=== PATIENT | male | born 1985 | race Caucasian/White ===

== ENCOUNTER 2021-07-20 00:49 | Emergency (ER) | payer MEDICAID, SELFPAY ==
[2021-07-20 00:59] VITALS: BP 140/85; PULSE 73; RESP 16; TEMP 36.7; O2SAT 99; BMI 30.2
--- NOTE | 2021-07-20 01:10 | ED_ITS ---
HPI - Nausea/Vomiting/Diarrhea General Chief complaint: Abdominal Pain Stated complaint: vomiting blood Time Seen by Provider: 07/20/21 00:50 Source: patient Mode of arrival: ambulatory Limitations: no limitations History of Present Illness HPI Narrative: tested positive at home rapid test with fevers/chills/body aches last wednesday then went to [facility] to confirm with antigen test on 07/16 that was negative MD elicited complaint: nausea, vomiting (on 3rd bout of emesis noted streaks of blood in emesis) and other (headache) Pertinent past history: other (chronic headaches every 2 months) Onset (ago): hour(s) (2) Description of vomiting: food contents, watery, bilious and blood-streaked Associated nausea: Yes Associated abdominal pain: No Location of pain: none Severity: moderate Relieving factors: other (drinking water) Context: other (none, hx of headaches and nausea took 2 advil tonight) Associated symptoms: headaches and nausea/vomiting Treatment prior to arrival: NSAIDs Related Data Previous Rx's Medication Instructions Recorded famotidine 20 mg tablet (Pepcid) 20 mg PO DAILY #14 tab 07/20/21 ondansetron 4 mg disintegrating 4 mg PO Q8H PRN #20 tab 07/20/21 tablet Allergies Allergy/AdvReac Type Severity Reaction Status Date / Time epoxy resin [EPOXY Allergy Intermediate RASH Verified 07/20/21 01:06 RESIN] Review of Systems Verdana 4l Review of Systems: Verdana 4d Verdana 4d Constitutional : No Fever, No Chills, No Fatigue ENT/Mouth : No sore throat, No Rhinorrhea Eyes: No Eye Pain, No Swelling, No Redness Cardiovascular : No Chest Pain, No SOB, No Dyspnea on Exertion Respiratory : No Cough, No Sputum GastrointestinalGastrointestinal : pos Nausea, pos Vomiting, No Diarrhea, No abdominal Pain, pos hematemesis Genitourinary : No Dysuria, No Urinary Frequency, No Hematuria, Musculoskeletal : No joint pain, No Myalgias, No Joint Swelling Skin : No Skin Lesions, No rash Neuro : No Weakness, No Numbness, No Dizziness, positive Headache Psych : No Anxiety/Panic, No Depression Heme/Lymph: No Bruising, No Bleeding,No Lymphadenopathy Endocrine : No Polyuria, No Polydipsia All other systems reviewed and are negative Gastrointestinal: Gastrointestinal: Reports nausea PMFSH Past Medical History Attestation statement: The following information was validated with the patient. Medical History (Updated 07/20/21 @ 01:56 by Shanika Vieyra DO) Chronic headaches Social History Social History (Updated 07/20/21 @ 01:17 by Shanika Vieyra DO) Patient Tobacco Use Status: Never used Tobacco Physical Exam Verdana 4l Vital Signs: Verdana 4d Verdana 4d Vital Signs: Verdana 4d Verdana 4Bd Last Vital Signs Verdana 4d Repair Tech New 4d Repair Tech New 4d Temp 98.0 F 07/20/21 00:59 Repair Tech New 4d Pulse 73 07/20/21 00:59 Repair Tech New 4d Resp 16 07/20/21 00:59 BP 140/85 H 07/20/21 00:59 Pulse Ox 99 07/20/21 00:59 BMI result Body Mass Index 30.2 Appearance: Alert. Oriented X3. No acute distress. Eyes: Pupils equal, round and reactive to light. ENT: Pharynx normal. Neck: Normal inspection. Neck supple. CVS: Normal heart rate and rhythm. Pulses normal. Respiratory: No respiratory distress. Breath sounds normal. Abdomen: Soft and non-tender. Skin: Skin warm and dry. Normal skin color. Normal skin turgor. Extremities: No lower extremity edema. No calf ttp Neuro: Oriented X 3. No motor deficit. No sensory deficit. Course Course Course Narrative: mild elevation in LFTs can follow up with PCP, no anemia, VS stable no further bouts of emesis MDM - Nausea/Vomiting/Diarrhea MDM Narrative Medical decision making narrative: 35 yo male with no sig PMH hx of J+J vaccine no booster describes viral like illness with recent conflicting test results carina had a headache which was typical for him but then on the third time he vomited he noted some bloody streaks x 1 - no recent black stools. Did take advil tonbeth. He is not on anti- coagulants. Has benign abdomen - VS are stable. At this time likely Eli Arias tear after vomiting. Will obtain basic labs, hydrate, IV zofran/pepcid, retest for COVID. Did discuss reasons to return and medications to avoid over the next two weeks. Pending normal workup and improvement will start on pepcid for the next 2 weeks. Lab Data Result diagrams: 07/20/21 01:25 07/20/21 01:25 Labs: Lab Results 07/20/21 07/20/21 07/20/21 Range/Units 01:20 01:25 01:25 WBC 8.9 (4.8-10.8) X10*3/uL RBC 4.87 (4.60-5.80) X10*6/uL Hgb 14.9 (14.0-18.0) g/dl Hct 43.4 (42.0-52.0) % MCV 89.1 (80.0-98.0) fL MCH 30.6 (27.0-33.0) pg MCHC 34.3 (31.0-36.0) g/dl RDW 11.9 (11.0-16.0) % Plt Count 265 (160-400) X10*3/uL MPV 9.4 (9.4-12.4) fL Immature Gran % (Auto) 0.4 (0.0-0.4) % Neut % (Auto) 66.3 (45-73) % Lymph % (Auto) 24.8 (20-40) % [place] % (Auto) 7.3 (2-11) % Eos % (Auto) 0.9 (0-4) % Baso % (Auto) 0.3 (0-2) % Lymph # (Auto) 2.2 (1.2-4.9) X10*3/uL [place] # (Auto) 0.7 (0.1-1.2) X10*3/uL Eos # (Auto) 0.1 (0.0-0.4) X10*3/uL Baso # (Auto) 0.0 (0.0-0.2) X10*3/uL Abs Immat Gran (auto) 0.04 H (0.00-0.03) X10*3/uL Absolute Neuts (auto) 5.9 (2.0-8.3) x10*3/uL Absolute Nucleated RBC 0.000 (0.0-0.012) X10*3/uL Nucleated RBC % (auto) 0.0 (0.0-0.2) /100WBC Sodium 140 (135-145) mmol/L Potassium 4.6 (3.3-5.1) mmol/L Chloride 106 (96-108) mmol/L Carbon Dioxide 24 (22-29) mmol/L Anion Gap 15 (12-20) BUN 17 H (9-16) mg/dL Creatinine 1.31 (0.5-1.4) mg/dL Estim Creat Clear Calc 103.3 Estimated GFR > 60 Random Glucose 98 (60-115) mg/dL Calcium 9.5 (8.4-10.2) mg/dL Magnesium 2.0 (1.6-2.6) mg/dL Total Bilirubin 0.3 (0.0-1.0) mg/dL Direct Bilirubin < 0.2 (0.0-0.5) mg/dL AST 38 H (5-37) U/L ALT 71 H (0-40) U/L Alkaline Phosphatase 54 (39-117) U/L Total Protein 8.0 (6.5-8.0) g/dL Albumin 4.1 (3.5-5.0) g/dL Lipase 37 (8-78) U/L COVID-19 ([facility]) Negative (Negative) COVID-19 Clin Com See Note Discharge Plan Discharge Clinical Impression: Gastritis, Elevated liver function tests Patient Disposition: Home, Self-Care Instructions: Gastritis (ED) Additional Instructions: return to ED for any worsening symptoms or concerns avoid aspirin and NSAIDs repeat liver function tests with primary care doctor in 5 days NEGATIVE COVID TEST Prescriptions: New famotidine [Pepcid] 20 mg tablet 20 mg PO DAILY Qty: 14 0RF ondansetron 4 mg tablet,disintegrating 4 mg PO Q8H PRN (Reason: nausea and vomiting) Qty: 20 0RF Referrals: Physician,Unknown J [Primary Care Provider] - 5 days Stand Alone Forms: Work/School Release
[2021-07-20] MEDS: 0.9 % Sodium Chloride 1,000 ML 999 ML IVCONT (01:26)
[2021-07-20] MEDS: ondansetron HCL 4 MG/2 ML VIAL IVPUSH (01:27)
[2021-07-20] MEDS: Famotidine/PF 20 MG/2 ML VIAL IVPUSH (01:27)
[2021-07-20 01:30] LABS: MANUAL DIFF FLAG NO
[2021-07-20 01:44] LABS: Basophils Percent Auto 0.3 % (0-2); Eosinophils Absolute Auto 0.1 X10*3/uL (0.0-0.4); Eosinophils Percent Auto 0.9 % (0-4); Hematocrit 43.4 % (42.0-52.0); Hemoglobin 14.9 g/dl (14.0-18.0); Imm Gran Abs Auto 0.04 X10*3/uL (0.00-0.03); Imm Gran Pct Auto 0.4 % (0.0-0.4); Lymphocytes Absolute Auto 2.2 X10*3/uL (1.2-4.9); Lymphocytes Percent Auto 24.8 % (20-40); Mean Corpuscular HGB Conc 34.3 g/dl (31.0-36.0); Mean Corpuscular Hemoglobin 30.6 pg (27.0-33.0); Mean Corpuscular Volume 89.1 fL (80.0-98.0); Mean Platelet Volume 9.4 fL (9.4-12.4); Monocytes Absolute Auto 0.7 X10*3/uL (0.1-1.2); Monocytes Percent Auto 7.3 % (2-11); Neutrophils Absolute Auto 5.9 x10*3/uL (2.0-8.3); Neutrophils Percent Auto 66.3 % (45-73); Platelet Count 265 X10*3/uL (160-400); Red Blood Count 4.87 X10*6/uL (4.60-5.80); Red Cell Distribution Width 11.9 % (11.0-16.0); White Blood Count 8.9 X10*3/uL (4.8-10.8)
[2021-07-20 01:51] LABS: COVID-19 Test Negative (Negative)
[2021-07-20 01:53] LABS: Alanine Aminotransferase 71 U/L (0-40); Albumin Level 4.1 g/dL (3.5-5.0); Alkaline Phosphatase 54 U/L (39-117); Anion Gap 15 (12-20); Aspartate Amino Transferase 38 U/L (5-37); Bilirubin Direct < 0.2 mg/dL (0.0-0.5); Bilirubin Total 0.3 mg/dL (0.0-1.0); Blood Urea Nitrogen 17 mg/dL (9-16); Calcium 9.5 mg/dL (8.4-10.2); Carbon Dioxide 24 mmol/L (22-29); Chloride 106 mmol/L (96-108); Creatinine Clr Calc Pharmacy 103.3; Estimated Glomerular Filt Rate > 60; Glucose Random 98 mg/dL (60-115); Lipase 37 U/L (8-78); Potassium 4.6 mmol/L (3.3-5.1); Sodium 140 mmol/L (135-145)
== END 2021-07-20 02:34 | disposition home or self-care (01) ==
PROVIDERS: Emergency Provider Emergency Medicine; PCP Family Medicine
DX: K29.70 Gastritis, unspecified, without bleeding (principal); K92.0 Hematemesis; R51.9 Headache, unspecified; M79.10 Myalgia, unspecified site; R50.9 Fever, unspecified; R05.9 Cough, unspecified; R79.89 Other specified abnormal findings of blood chemistry; Z79.899 Other long term (current) drug therapy
CPT/HCPCS: 80048; 80076; 83690; 83735; 85025; 87635; 96374; 96375; 99283; J2405

== ENCOUNTER 2022-11-19 08:48 | Emergency (ER) | payer OTHER, MEDICAID, SELFPAY ==
--- NOTE | ~2022-11-19 | XR_ITS ---
EXAMINATION: XR ANKLE, LEFT CLINICAL INFORMATION: Left ankle pain status post injury. COMPARISON: None available. TECHNIQUE: AP, lateral, and mortise views of the left ankle. FINDINGS: The bones and soft tissues are normal. No fracture. Alignment is anatomic. Joint spaces are maintained. No joint effusion. XR/XR ankle LT min 3V IMPRESSION: Unremarkable left ankle.
--- NOTE | ~2022-11-19 | XR_ITS ---
EXAMINATION: XR FOOT, LEFT CLINICAL INFORMATION: Left foot pain status post injury. COMPARISON: None available. TECHNIQUE: AP, lateral, and oblique views of the left foot. FINDINGS: The bones and soft tissues are normal. No fracture. Alignment is anatomic. Joint spaces are maintained. XR/XR foot LT min 3V IMPRESSION: Unremarkable left foot.
[2022-11-19 08:53] VITALS: BP 123/87; PULSE 71; RESP 18; TEMP 36.6; O2SAT 100; BMI 30.2
[2022-11-19 10:28] VITALS: BP 126/81; PULSE 61; RESP 16; TEMP 36.6; O2SAT 99
--- NOTE | 2022-11-19 10:32 | ED.LOWEXIN ---
HPI - Extremity Injury (Lower) General Chief Complaint: Extremity Injury, Lower Stated Complaint: l foot inj Time Seen by Provider: 11/19/22 09:10 History of Present Illness HPI Narrative: Patient complains of left ankle pain after twisting it in soccer several days ago, he has been walking with a limp and it still hurts Related Data Previous Rx's Medication Instructions Recorded famotidine 20 mg tablet (Pepcid) 20 mg PO DAILY #14 tabs 07/20/21 ondansetron 4 mg disintegrating 4 mg PO Q8H PRN nausea and 07/20/21 tablet vomiting #20 tabs Allergies Allergy/AdvReac Type Severity Reaction Status Date / Time epoxy resin [EPOXY RESIN] Allergy Intermediate RASH Verified 11/19/22 08:53 PMF Past Medical History Source: nursing notes reviewed Medical History (Updated 11/19/22 @ 10:35 by WILLOW Beck) Chronic headaches Social History Social History (Updated 07/20/21 @ 01:17 by Shasta Vieyra DO) Patient Tobacco Use Status: Never used Tobacco Advance Directives: No Physical Exam Vital Signs: Vital Signs: Last Vital Signs Temp 97.9 F 11/19/22 10:28 Pulse 61 11/19/22 10:28 Resp 16 11/19/22 10:28 BP 126/81 11/19/22 10:28 Pulse Ox 99 11/19/22 10:28 O2 Del Method Room Air 11/19/22 10:28 BMI result Body Mass Index 30.2 General appearance no distress Head normocephalic atraumatic Neck is supple Extremities full range of motion x4 including left ankle left ankle has some tenderness around the lateral malleolus and some tenderness over the 5th metatarsal, there is no significant swelling but there is ecchymosis, he is able to bear weight, skin is intact Course Course Course Narrative: Left ankle x-ray was negative, left foot x-ray was negative, patient bears weight with mild limp and is discharged diagnosis ankle sprain Discharge Plan Discharge Clinical Impression: Ankle sprain and strain Patient Disposition: Home, Self-Care Additional Instructions: X-ray of your left foot and ankle was normal no sign of any broken bone You are able to bear weight well so very unlikely there is any missed fracture Follow with orthopedist if if needed if you are failing to improve You can use Motrin or Tylenol if needed Prescriptions: No Action famotidine [Pepcid] 20 mg tablet 20 mg PO DAILY Qty: 14 0RF ondansetron 4 mg tablet,disintegrating 4 mg PO Q8H PRN (Reason: nausea and vomiting) Qty: 20 0RF Referrals: Zander Shah MD [Physician] -
== END 2022-11-19 10:40 | disposition home or self-care (01) ==
PROVIDERS: Emergency Provider Emergency Medicine Emergency Medical Services; PCP Family Medicine
DX: S93.402A Sprain of unspecified ligament of left ankle, initial encounter (principal); M25.572 Pain in left ankle and joints of left foot; X50.1XXA Overexertion from prolonged static or awkward postures, initial encounter; Y93.9 Activity, unspecified; Y92.9 Unspecified place or not applicable; Y99.9 Unspecified external cause status; Z79.899 Other long term (current) drug therapy
CPT/HCPCS: 73610; 73630; 99282; 99283

== ENCOUNTER 2023-05-03 07:17 | Inpatient (IN) | payer OTHER, MEDICAID, SELFPAY ==
[2023-05-03] VITALS (12 sets, daily range): BP systolic 90–143; BP diastolic 56–72; PULSE 81–110; RESP 16–28; TEMP 36.7–38.8; O2SAT 95–100; BMI 32.2
--- NOTE | ~2023-05-03 | XR_ITS ---
EXAMINATION: XR CHEST CLINICAL INFORMATION: Shortness of breath and cough. Fever. COMPARISON: None available. TECHNIQUE: Frontal view of the chest was obtained. FINDINGS: The cardiac silhouette is upper size. The lungs are clear. No pleural effusion or pneumothorax. Bony structures are unremarkable. XR/XR chest 1V IMPRESSION: Upper normal-size cardiac silhouette. No evidence of pneumonia.
--- NOTE | ~2023-05-03 | CT_ITS ---
EXAMINATION: CT ABDOMEN AND PELVIS WITHOUT CONTRAST CLINICAL INFORMATION: Elevated LFTs. Fever. Abdominal discomfort. COMPARISON: None available. TECHNIQUE: Multidetector volumetric imaging was performed from the superior aspect of the liver through the pubic symphysis. Sagittal and coronal reformatted images were obtained on the technologist's workstation. This CT examination was performed using dose optimization techniques as appropriate, variously including the following: *Automated exposure control *Adjustment of mA and/or kV according to patient size (this includes techniques or standardized protocols for targeted exams where dose is matched to indication/reason for exam; i.e. extremities or head) *Use of iterative reconstruction technique DLP: 727 mGy-cm FINDINGS: LUNG BASES: The visualized lung bases are unremarkable. Small hiatal hernia. LIVER, GALLBLADDER, AND BILIARY TREE: The noncontrast liver is decreased in attenuation and enlarged. No biliary ductal dilatation is present. The gallbladder is unremarkable with no evidence of radiopaque gallstones, gallbladder wall thickening, or obvious pericholecystic inflammatory changes. PANCREAS: Unremarkable. SPLEEN: Enlarged. ADRENAL GLANDS: Unremarkable. KIDNEYS AND URETERS: The kidneys are normal in size, shape, and attenuation. No hydronephrosis, hydroureter, or calculi seen. No perinephric stranding. BLADDER: Unremarkable. GASTROINTESTINAL TRACT: The small and large bowel are unremarkable. The appendix is unremarkable. ABDOMINAL WALL: No significant hernia is appreciated. LYMPH NODES: Multiple subcentimeter retroperitoneal and mesenteric lymph nodes are nonspecific. VASCULAR: Normal caliber abdominal aorta. PELVIC VISCERA: Unremarkable. OSSEOUS STRUCTURES: No destructive bone lesions. CT/CT abdomen pelvis wo IV con IMPRESSION: Hepatic steatosis. Hepatosplenomegaly.
--- NOTE | 2023-05-03 07:31 | ED.FEVER ---
HPI - Fever General Chief Complaint: General Medical Stated Complaint: Fever 4 days Time Seen by Provider: 05/03/23 07:23 Source: patient Mode of arrival: ambulatory Limitations: no limitations History of Present Illness HPI Narrative: 37 year old male with no significant pmhx presents to the ED today for evaluation of fever, decreased appetite, diarrhea, and abdominal cramping x2 days. Reports tmax of 102F at home. Endorses loose stools beginning yesterday, last BM was this morning. Additionally reports intermittent diffuse abdominal cramping x2 days (denies pain). Denies nausea or vomiting. Admits to an episode of light headedness while lying in bed this morning which lasted for a few seconds before completely resolving. Not exacerbated with sudden head movements. Denies syncope, vision changes, dizziness/ room spinning sensation, chest pain or sob. Denies hematochezia, melena, BRBPR. No known sick contacts. No recent travel or long car rides. Related Data Allergies Allergy/AdvReac Type Severity Reaction Status Date / Time epoxy resin [EPOXY RESIN] Allergy Intermediate RASH Verified 05/03/23 07:40 Review of Systems Review of Systems: Constitutional: No fever, chills, fatigue, night sweats, weight changes, +decreased appetite ENT/Mouth: No ear pain, hearing loss, nasal congestion, sinus pain, rhinorrhea, sore throat Eyes: No eye pain, swelling, redness, vision changes, discharge Cardio: No chest pain, palpitations, ALEJANDRA, orthopnea, peripheral edema Pulm: No SOB, cough, sputum, wheezing, dyspnea, hemoptysis GI: No nausea, vomiting, hematemesis, +abdominal cramping, +diarrhea, No constipation, hematochezia, melena : No irregular bleeding, dysuria, frequency, urgency, hesitancy, hematuria, flank pain, urinary flow changes MSK: No back pain, neck pain, joint pain, myalgias Skin: No lesions, rashes Neuro: No weakness, numbness, paresthesias, LOC, dizziness, headache, +lightheaded All other systems reviewed and are negative. [facility] Past Medical History Attestation statement: The following information was validated with the patient. Source: old records reviewed and nursing notes reviewed Medical History Chronic headaches Social History Social History Alcohol intake: current Alcohol intake frequency: holidays/special occasions only Patient Tobacco Use Status: Never used Tobacco Physical Exam Vital Signs: Vital Signs: Last Vital Signs Temp 99.8 F 05/03/23 14:35 Pulse 99 05/03/23 13:29 Resp 18 05/03/23 12:00 BP 90/57 L 05/03/23 13:29 Pulse Ox 95 05/03/23 12:00 O2 Del Method Room Air 05/03/23 12:00 BMI result Body Mass Index 32.2 Vital signs initially notable for tachycardia likely secondary to dehydration. Afebrile. Const: General: cooperative, healthy appearing, comfortable, no acute distress, alert and awake; No diaphoretic Orientation/consciousness: patient oriented x3 Limitations: no limitations HEENT: Other: + Posterior oropharynx without erythema or edema. No tonsillar exudates. Uvula midline. Controlling secretions and speaking in complete sentences. + Dry oral mucous membranes Head: Yes normal to inspection Ears: hearing grossly normal bilaterally, external ears normal, TM's normal bilaterally and EAC's normal General nose exam: Normal external nose present Eyes: General: appearance normal, both eyes and all related structures Conjunctivae: conjunctivae normal Sclerae: sclerae normal Pupils: Equal, round and reactive pupils present EOM: EOMs intact bilaterally Neck: Neck: Yes normal visual inspection, Yes no lymphadenopathy and Yes no meningeal signs Thyroid: Thyroid normal Resp: Effort & Inspection: normal respiratory effort Auscultation: clear to auscultation bilaterally Cardio: Rate: regular rate Rhythm: regular rhythm Peripheral pulses: radial pulses present GI: Other: + Abdomen soft, nondistended, nontender to palpation, no rebound tenderness or guarding. Normoactive bowel sounds x4. No McBurney point tenderness. Rovsing negative. Inspection: Yes normal to inspection Palpation (GI): Splenomegaly present : General: Yes no CVA tenderness Back/Spine/Pelvis: Back: no CVA tenderness and No Lacy-Jain sign present Skin: General skin exam: no rashes or lesions noted Neuro: General: patient oriented x3, gait normal, moves all extremities and no meningeal signs Cranial nerves: Yes CN's II-XII intact bilaterally, Yes Equal, round and reactive pupils present and Yes Nystagmus not present Coordination: [id number] test normal, [id number] test normal and Normal rapid alternating movements of the distal upper extremity present (Neuro) Extrem: General: Yes normal to inspection, Yes capillary refill normal, Yes no joint enlargement and Yes no clubbing, cyanosis or edema Course Course Course Narrative: 850-- EKG showing NSR with a rate of 93 bpm, no acute ischemic changes. CBC without leukocytosis or anemia. Chemistry with DAVID likely secondary to dehydration > IVF running. Elevated total bili along with chronically elevated AST/ALT > patient denies ETOH use and states he drinks very rarely. Lipase WNL. CRP elevated which may be attributable to dehydration, ESR WNL. Negative for COVID and influenza. UA and CT pending. 943-- CT abdomen/pelvis showing hepatic steatosis and hepatosplenomegaly. Given splenomegaly, will add on mono spot to check for mononucleosis although patient has no palpable LAD. >> Informed patient of lab/imaging results. Patient endorses frequent hunting outdoors > Has never appreciated a tick, tick bite, or rash. Will order tick-borne panel and lyme. Case discussed with my attending physician, Dr. Vieyra who agrees with plan. > On independent interpretation of CT there are multiple stones at the UVJ and punctate calcifications within kidneys b/l. I do not appreciate hydronephrosis. These findings were not noted on radiologist interpretation. Patient denies flank pain or urinary symptoms, no CVAT, awaiting UA. 1240-- Patient now febrile to 101.9F > Tylenol ordered. This is likely secondary to viral syndrome. No longer tachy after IVF > likely due to dehydration. I do not suspect sepsis at this time. Monospot negative. UA without infection or blood > unlikely UTI or obstructive stone. Lyme/ tick panel pending. > On re-evaluation I personally observed patient's urine in room and noted it to be dark orange in coloration > Both patient and RN report that patient became increasingly dizzy upon standing and ambulating to the bathroom after receiving 2L IVF. Another liter is hanging. Due to symptomatic orthostatic hypotension after fluid administration, will present patient for admission. 1407-- Orthostatic VS improved however patient continues to be symptomatic after 3L fluids. Patient to be admitted to medicine for symptomatic orthostatic hypotension and fever of unknown origin. Medications Administered Generic Name Dose Route Start Last Admin Trade Name Freq PRN Reason Stop Dose Admin Doxycycline Hyclate 100 mg/ 250 mls @ 166.67 mls/hr 05/03/23 14:15 05/03/23 16:23 Sodium Chloride IV 166.67 mls/hr Q12H ALFONZO Administration Sodium Chloride 3 ml 05/03/23 16:00 05/03/23 14:54 0.9 % Sodium Chloride Flush 3 Ml Syringe IVFLUSH 3 ml QSHIFT ALFONZO Administration Discontinued Medications Generic Name Dose Route Start Last Admin Trade Name Kareen PRN Reason Stop Dose Admin Acetaminophen 975 mg 05/03/23 12:36 05/03/23 12:48 Acetaminophen 325 Mg Tablet PO 05/03/23 12:37 975 mg ONCE ONE Administration Sodium Chloride 1,000 mls @ 999 mls/hr 05/03/23 07:45 05/03/23 08:52 Ns IV 05/03/23 08:45 Infused .Q1H1M ALFONZO Infusion Sodium Chloride 1,000 mls @ 999 mls/hr 05/03/23 09:45 05/03/23 11:00 Ns IV 05/03/23 10:45 Infused .Q1H1M ALFONZO Infusion Sodium Chloride 1,000 mls @ 999 mls/hr 05/03/23 11:30 05/03/23 13:06 Ns IV 05/03/23 12:30 Infused .Q1H1M ALFONZO Infusion Sodium Chloride 1,000 mls @ 250 mls/hr 05/03/23 14:15 05/03/23 14:53 Ns IVCONT 05/03/23 18:14 250 mls/hr .Q4H ALFONZO Administration Magnesium Sulfate 2 gm in 50 mls @ 25 mls/hr 05/03/23 14:31 05/03/23 16:38 Magnesium Sulfate/H2o IV 05/03/23 16:30 Infused ONCE ONE Infusion Medical Decision Making Medical Decision Making MDM Narrative: 37 year old male with no significant pmhx presents to the ED today for evaluation of fever, decreased appetite, diarrhea, and abdominal cramping x2 days. Nontoxic appearing, in NAD. Vital signs initially notable for tachycardia likely secondary to dehydration, otherwise WNL. Afebrile. No fatigable nystagmus. Exam is nonfocal. Cerebellum intact. Posterior oropharynx without erythema/edema, uvula midline, no tonsillar exudates. Lungs CTA bilaterally. Abdomen soft, NT/ND, no rebound tenderness or guarding, normoactive bs x4. No CVAT. No calf tenderness. No rash. Clinical concern for viral syndrome, lyme disease, tickborne illness, gastroenteritis, dehydration, electrolyte abnormality, orthostasis. Suspicion for UTI, obstructive uropathy, obstructive renal stone. Lower suspicion for strep throat, mono, pneumonia. Lower suspicion for appendicitis, cholecystitis, pancreatitis, acute abdomen. Unlikely hemolytic anemia or lymphoma. Unlikely ACS, arrhythmia, PE/ DVT, dissection. Plan at this time is viral serology,labs, EKG, UA, IVF and orthostatic vital signs. Differential Diagnosis Differential Diagnoses: The differential diagnosis associated with the presentation includes As above. Admission/Observation Consideration of admission/observation: Escalation of care including admission/observation considered Patient to be admitted to medicine for symptomatic orthostatic hypotension unresponsive to IVF and fever of unknown origin. Consult Healthcare Provider Management of the patient was discussed with: Hospitalist (Dr. Sheriff) Lab Data MDM Lab Attestation statement: I reviewed the patient's lab results. As above. 05/03/23 07:50 05/03/23 14:04 Labs: Lab Results 05/03/23 05/03/23 05/03/23 Range/Units 07:50 10:16 12:10 WBC 4.8 (4.8-10.8) X10*3/uL RBC 5.01 (4.60-5.80) X10*6/uL Hgb 15.3 (14.0-18.0) g/dl Hct 43.8 (42.0-52.0) % MCV 87.4 (80.0-98.0) fL MCH 30.5 (27.0-33.0) pg MCHC 34.9 (31.0-36.0) g/dl RDW 12.1 (11.0-16.0) % Plt Count 118 L D (160-400) X10*3/uL MPV 9.7 (9.4-12.4) fL Immature Gran % (Auto) 0.2 (0.0-0.4) % Neut % (Auto) 77.4 H (45-73) % Lymph % (Auto) 15.9 L (20-40) % [place] % (Auto) 6.3 (2-11) % Eos % (Auto) 0.0 (0-4) % Baso % (Auto) 0.2 (0-2) % Lymph # (Auto) 0.8 L (1.2-4.9) X10*3/uL [place] # (Auto) 0.3 (0.1-1.2) X10*3/uL Eos # (Auto) 0.0 (0.0-0.4) X10*3/uL Baso # (Auto) 0.0 (0.0-0.2) X10*3/uL Abs Immat Gran (auto) 0.01 (0.00-0.03) X10*3/uL Absolute Neuts (auto) 3.7 (2.0-8.3) x10*3/uL Absolute Nucleated RBC 0.000 (0.0-0.012) X10*3/uL Nucleated RBC % (auto) 0.0 (0.0-0.2) /100WBC ESR 12 (0-15) MM/HR Sodium 135 (135-145) mmol/L Potassium 3.5 D (3.3-5.1) mmol/L Chloride 103 (96-108) mmol/L Carbon Dioxide 25 (22-29) mmol/L Anion Gap 11 L (12-20) BUN 13 (9-16) mg/dL Creatinine 1.52 H (0.5-1.4) mg/dL Estim Creat Clear Calc 90.1 Estimated GFR 52 Random Glucose 113 (60-115) mg/dL Calcium 9.0 (8.4-10.2) mg/dL Magnesium 1.5 L (1.6-2.6) mg/dL Total Bilirubin 1.1 H (0.0-1.0) mg/dL AST 48 H (5-37) U/L ALT 64 H (0-40) U/L Alkaline Phosphatase 57 (39-117) U/L Lactate Dehydrogenase (118-273) U/L Troponin I High Sens (<3.5-35.0) ng/L C-Reactive Protein 6.84 H (< or = 0.50) mg/dL Total Protein 7.7 (6.5-8.0) g/dL Albumin 3.9 (3.5-5.0) g/dL Lipase 27 (8-78) U/L Urine Color Dark Yellow Urine Appearance Clear Urine pH 5.5 (5.0-9.0) Ur Specific [place] 1.025 (1.005-1.025) Urine Protein 30 (1+) H (Neg-Trace) mg/dL Urine Glucose (UA) Negative (Negative) mg/dL Urine Ketones Trace (Negative) mg/dL Urine Blood Negative (Negative) Urine Nitrite Negative (Negative) Ur Leukocyte Esterase Trace H (Negative) Urine RBC 0-2 (0-2) /HPF Urine WBC 0-5 (0-5) /HPF Ur Squamous Epith Cells 0-2 (0-2) /HPF Urine Bacteria None Seen (None Seen) Hyaline Casts 0-2 (0-2) /LPF COVID-19 (IRIS) Negative (Negative) COVID-19 Clin Com See Note Monoscreen Negative (Negative) Influenza Type A (MAISHA) Negative (Negative) Influenza Type B (MAISHA) Negative (Negative) Influenza A & B Note See Note 05/03/23 Range/Units 14:04 WBC (4.8-10.8) X10*3/uL RBC (4.60-5.80) X10*6/uL Hgb (14.0-18.0) g/dl Hct (42.0-52.0) % MCV (80.0-98.0) fL MCH (27.0-33.0) pg MCHC (31.0-36.0) g/dl RDW (11.0-16.0) % Plt Count (160-400) X10*3/uL MPV (9.4-12.4) fL Immature Gran % (Auto) (0.0-0.4) % Neut % (Auto) (45-73) % Lymph % (Auto) (20-40) % [place] % (Auto) (2-11) % Eos % (Auto) (0-4) % Baso % (Auto) (0-2) % Lymph # (Auto) (1.2-4.9) X10*3/uL [place] # (Auto) (0.1-1.2) X10*3/uL Eos # (Auto) (0.0-0.4) X10*3/uL Baso # (Auto) (0.0-0.2) X10*3/uL Abs Immat Gran (auto) (0.00-0.03) X10*3/uL Absolute Neuts (auto) (2.0-8.3) x10*3/uL Absolute Nucleated RBC (0.0-0.012) X10*3/uL Nucleated RBC % (auto) (0.0-0.2) /100WBC ESR (0-15) MM/HR Sodium 138 (135-145) mmol/L Potassium 3.2 L (3.3-5.1) mmol/L Chloride 106 (96-108) mmol/L Carbon Dioxide 24 (22-29) mmol/L Anion Gap 11 L (12-20) BUN 12 (9-16) mg/dL Creatinine 1.31 (0.5-1.4) mg/dL Estim Creat Clear Calc 104.5 Estimated GFR > 60 Random Glucose 105 (60-115) mg/dL Calcium 8.2 L D (8.4-10.2) mg/dL Magnesium (1.6-2.6) mg/dL Total Bilirubin 1.1 H (0.0-1.0) mg/dL AST 46 H (5-37) U/L ALT 56 H (0-40) U/L Alkaline Phosphatase 53 (39-117) U/L Lactate Dehydrogenase 296 H (118-273) U/L Troponin I High Sens 3.2 (<3.5-35.0) ng/L C-Reactive Protein (< or = 0.50) mg/dL Total Protein 6.8 (6.5-8.0) g/dL Albumin 3.5 (3.5-5.0) g/dL Lipase (8-78) U/L Urine Color Urine Appearance Urine pH (5.0-9.0) Ur Specific [place] (1.005-1.025) Urine Protein (Neg-Trace) mg/dL Urine Glucose (UA) (Negative) mg/dL Urine Ketones (Negative) mg/dL Urine Blood (Negative) Urine Nitrite (Negative) Ur Leukocyte Esterase (Negative) Urine RBC (0-2) /HPF Urine WBC (0-5) /HPF Ur Squamous Epith Cells (0-2) /HPF Urine Bacteria (None Seen) Hyaline Casts (0-2) /LPF COVID-19 (IRIS) (Negative) COVID-19 Clin Com Monoscreen (Negative) Influenza Type A (MAISHA) (Negative) Influenza Type B (MAISHA) (Negative) Influenza A & B Note Independent Interpretation I performed an independent interpretation of an: EKG and CT Scan Interpretation: EKG showing normal sinus rhythm with a rate of 93 beats per minute, QT 330, QTC 410, incomplete right bundle-branch block however no acute ischemic changes or ST elevation. CT abdomen/ pelvis showing punctate calcifications within the kidneys and stones within the ureter, and UVJ not noted on radiology read. There is hepatomegaly and splenomegaly, agree with radiologist's interpretation. Radiology Impression Discussion of test interpretation with radiology: I have reviewed the radiologist's reading. Radiologist Impression: CT abdomen pelvis wo IV con IMPRESSION: Hepatic steatosis. Hepatosplenomegaly. External Record Review External record reviewed: Inpatient record Prescription Management I considered prescription management with: Pain Medication Critical Care Time Critical Care Time Critical Care Time: Yes Total Critical Care Time: 52 Attestation: Critical care time in the amount of 60 minutes has been provided to the patient in terms of direct patient care, frequent reevaluation, consultation with hospitalist, review and interpretation of medical data and results, and management of potentially life-threatening conditions. This is all outside of any medical procedures. Discharge Plan Discharge Clinical Impression: Orthostasis, Splenomegaly, Hepatic steatosis Patient Disposition: Admitted As Inpatient Interventions: Admission Worksheet (ED) Last Done: 05/03/23 20:52 Discharge Date/Time: 05/03/23 21:14
[2023-05-03] MEDS: 0.9 % Sodium Chloride 1,000 ML 999 ML IV ×3 (07:51→12:05)
[2023-05-03 07:55] LABS: MANUAL DIFF FLAG NO
--- NOTE | 2023-05-03 08:03 | PC.NURSE ---
patient a&ox3, iv inserted, labs drawn, swabs obtained, ivf hung per order, pt placed on kerrick kleaner operator nsr, pt c/o abd discomfort but states it is not actual pain, call fox within reach, will continue to monitor
--- NOTE | 2023-05-03 08:05 | ECG_ITS ---
Test Reason : lightheaded Blood Pressure : / mmHG Vent. Rate : 093 BPM Atrial Rate : 093 BPM P-R Int : 124 ms QRS Dur : 102 ms QT Int : 330 ms P-R-T Axes : 059 001 -11 degrees QTc Int : 410 ms Normal sinus rhythm Incomplete right bundle branch block Nonspecific T wave abnormality Abnormal ECG No previous ECGs available Referred By: Lizbeth Fitzgerald Electronically Signed By:WM KOENIG MD
[2023-05-03 08:11] LABS: Basophils Percent Auto 0.2 % (0-2); Hematocrit 43.8 % (42.0-52.0); Hemoglobin 15.3 g/dl (14.0-18.0); Imm Gran Abs Auto 0.01 X10*3/uL (0.00-0.03); Imm Gran Pct Auto 0.2 % (0.0-0.4); Lymphocytes Absolute Auto 0.8 X10*3/uL (1.2-4.9); Lymphocytes Percent Auto 15.9 % (20-40); Mean Corpuscular HGB Conc 34.9 g/dl (31.0-36.0); Mean Corpuscular Hemoglobin 30.5 pg (27.0-33.0); Mean Corpuscular Volume 87.4 fL (80.0-98.0); Mean Platelet Volume 9.7 fL (9.4-12.4); Monocytes Absolute Auto 0.3 X10*3/uL (0.1-1.2); Monocytes Percent Auto 6.3 % (2-11); Neutrophils Absolute Auto 3.7 x10*3/uL (2.0-8.3); Neutrophils Percent Auto 77.4 % (45-73); Platelet Count 118 X10*3/uL (160-400); Red Blood Count 5.01 X10*6/uL (4.60-5.80); Red Cell Distribution Width 12.1 % (11.0-16.0); White Blood Count 4.8 X10*3/uL (4.8-10.8)
[2023-05-03 08:14] LABS: Alanine Aminotransferase 64 U/L (0-40); Albumin Level 3.9 g/dL (3.5-5.0); Alkaline Phosphatase 57 U/L (39-117); Anion Gap 11 (12-20); Aspartate Amino Transferase 48 U/L (5-37); Bilirubin Total 1.1 mg/dL (0.0-1.0); Blood Urea Nitrogen 13 mg/dL (9-16); C Reactive Protein 6.84 mg/dL (< or = 0.50); Carbon Dioxide 25 mmol/L (22-29); Chloride 103 mmol/L (96-108); Creatinine Clr Calc Pharmacy 90.1; Estimated Glomerular Filt Rate 52; Glucose Random 113 mg/dL (60-115); Lipase 27 U/L (8-78); Magnesium 1.5 mg/dL (1.6-2.6); Potassium 3.5 mmol/L (3.3-5.1); Sodium 135 mmol/L (135-145); Total Protein 7.7 g/dL (6.5-8.0)
[2023-05-03 08:21] LABS: COVID-19 Test Negative (Negative); IDNOW Serial# 08D9AD1C; IDNOW Serial# BCCEAD1C; Influenza A Negative (Negative); Influenza B2 Negative (Negative)
[2023-05-03 08:48] LABS: Erythrocyte Sedimentation Rate 12 MM/HR (0-15)
[2023-05-03 11:31] LABS: Monotest Negative (Negative)
--- NOTE | 2023-05-03 12:16 | PC.NURSE ---
patient a&ox3, pt stby assist to bathroom, pt stated he felt dizzy with ambulation, urine obtained, lab called Lyme added on to tick borne panel, ivf hung per order, vss- pt only noted to be febrile will notify provider, pt NSR on pvc monitor, denies pain/discomfort, call fox within reach, will continue to monitor.
[2023-05-03 12:17] LABS: Appearance Urine Clear; Color Urine Dark Yellow; Glucose Urine UA Negative (Negative); Leukocyte Esterase Urine Trace (Negative); Nitrite Urine Negative (Negative); PH 5.5 (5.0-9.0); Specific Gravity - Urine 1.025 (1.005-1.025); UMIC TRIGGER UACC YES; Urine Blood Negative (Negative); Urine Ketones Trace mg/dL (Negative); Urine Protein 30 (1+) mg/dL (Neg-Trace)
[2023-05-03 12:40] LABS: Bacteria Urine None Seen (None Seen); Hyaline Casts Urine 0-2 /LPF (0-2); RBC Urine 0-2 /HPF (0-2); Squamous Epithelial Cell Urine 0-2 /HPF (0-2); WBC Urine 0-5 /HPF (0-5)
[2023-05-03] MEDS: Acetaminophen 325 MG TABLET 975 MG PO (12:48)
--- NOTE | 2023-05-03 13:22 | PC.NURSE ---
pt medicated with po tylenol.
--- NOTE | 2023-05-03 14:09 | P.HPHOSP_ITS ---
History of Present Illness Date of Service: 05/03/23 Chief Complaint: Fever, Chills, diaphoretic 37 year old male with history of gerd here with fever chills. He reports having been having fever of up 104 for the last 3 days, associated with profuse sweating. His apetite has been rather poor, generalized malaise and feeling dizzy at time. He was healthy prior to this. 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 ED work up: normal blood count other than plat of 118, AST 48, ALT 67, normal bili. Mag 1.5 Has DAVID with Cr 1.5, monospot negative, Influenza and covid negative, Anaplasma screen is pending, CRP is 6.84. He has no rash. CT of the abdomen and pelvis show Hepatic steatosis. Hepatosplenomegaly. He has been treated with IV fluid , and Tylenol for fever. Review of Systems 2 Review of Systems: Gen: no fever, chills, sweating, dizzy Resp: no sob, no cough CV: no chest, no ALEJANDRA, no leg edema GI: No n/v, no abd pain Neuro: No confusion [facility] Medical History Chronic headaches Social History Alcohol intake: current Alcohol intake frequency: holidays/special occasions only Patient Tobacco Use Status: Never used Tobacco Smoked in Last 30 Days: No Use of substances other than those prescribed or required for medical reasons: No Advance Directives: No Advance Directives Information Provided: No Meds Allergies Allergy/AdvReac Type Severity Reaction Status Date / Time epoxy resin [EPOXY RESIN] Allergy Intermediate RASH Verified 05/03/23 07:40 Active Medications: Current Medications Doxycycline Hyclate 100 mg/ (Sodium Chloride) 250 mls @ 166.67 mls/hr IV Q12H ALFONZO Physical Exam 2 Vital Signs and Narrative: Vital Signs: Last Vital Signs Temp 101.9 F H 05/03/23 12:00 Pulse 99 05/03/23 13:29 Resp 18 05/03/23 12:00 BP 90/57 L 05/03/23 13:29 Pulse Ox 95 05/03/23 12:00 O2 Del Method Room Air 05/03/23 12:00 BMI result Body Mass Index 32.2 Const: Other: Constitutional: Alert, in no distress, healthy looking, no distress, visibly sweating Mental Status: Oriented to person, place and time. Eyes: Pupils are equal, round and reactive to light. Ear, Nose and Throat: Oropharynx clear, mucous membranes moist. Ears and nose without eformities. Trachea midline. Respiratory: Clear to auscultation. No wheezing, rales or rhonchi. Cardiovascular: S1 S2 regular. No murmurs, rubs or gallops. Gastrointestinal: Abdomen soft, non-tender, non-distended. Normal bowel sounds.? Neurologic: Cranial nerves II-XII grossly intact. No focal neurological deficits. Moves all extremities spontaneously.? Skin: No rashes or lesions.? Musculoskeletal: No cyanosis or clubbing. Psychiatric: Normal mood and affect? Results Labs 05/03/23 07:50 05/03/23 14:04 Labs: Laboratory Results - last 24 hr 05/03/23 05/03/23 05/03/23 07:50 10:16 12:10 MCV 87.4 MCH 30.5 MCHC 34.9 RDW 12.1 Plt Count 118 L D MPV 9.7 Immature Gran % (Auto) 0.2 Neut % (Auto) 77.4 H Lymph % (Auto) 15.9 L [place] % (Auto) 6.3 Eos % (Auto) 0.0 Baso % (Auto) 0.2 Lymph # (Auto) 0.8 L [place] # (Auto) 0.3 Eos # (Auto) 0.0 Baso # (Auto) 0.0 Abs Immat Gran (auto) 0.01 Absolute Neuts (auto) 3.7 Absolute Nucleated RBC 0.000 Nucleated RBC % (auto) 0.0 ESR 12 Anion Gap 11 L Estim Creat Clear Calc 90.1 Estimated GFR 52 Random Glucose 113 Calcium 9.0 Magnesium 1.5 L Total Bilirubin 1.1 H AST 48 H ALT 64 H Alkaline Phosphatase 57 C-Reactive Protein 6.84 H Total Protein 7.7 Albumin 3.9 Lipase 27 Urine Color Dark Yellow Urine Appearance Clear Urine pH 5.5 Ur Specific [place] 1.025 Urine Protein 30 (1+) H Urine Glucose (UA) Negative Urine Ketones Trace Urine Blood Negative Urine Nitrite Negative Ur Leukocyte Esterase Trace H Urine RBC 0-2 Urine WBC 0-5 Ur Squamous Epith Cells 0-2 Urine Bacteria None Seen Hyaline Casts 0-2 COVID-19 (IRIS) Negative COVID-19 Clin Com See Note Monoscreen Negative Influenza Type A (MAISHA) Negative Influenza Type B (MAISHA) Negative Influenza A & B Note See Note Imaging Radiologist's Impressions: Impressions Abdomen/Pelvis CT 05/03/23 08:55 IMPRESSION: Hepatic steatosis. Hepatosplenomegaly. Assessment and Plan (1) Fever of unknown origin: Status: Acute (2) Hepatic steatosis: Status: Acute (3) Splenomegaly: Status: Acute Plan 37 year old male with Fever, chills, Slenomegally and hepatic steatosis on CT.. DDx: Tick borne illness, Viral ilness, doubt lymphoma given no lymphadenopathy Plan: IVF for low blood pressure, Anaplasmosis work up, Empric Doxycyline, ID consult. Follow LFTs. DAVID is expected to resolve with IVF.. Tyllenol or NSAID for fever. IV mag for hypomagnesemia Quality Stroke Does the patient have a stroke diagnosis?: No VTE Prior VTE?: No VTE Risk Level:: Medical - low VTE Device Contraindication: Treatment Not Indicated VTE Drug Contraindication: N/A - Med Ordered
[2023-05-03 14:26] LABS: Alanine Aminotransferase 56 U/L (0-40); Albumin Level 3.5 g/dL (3.5-5.0); Alkaline Phosphatase 53 U/L (39-117); Anion Gap 11 (12-20); Aspartate Amino Transferase 46 U/L (5-37); Bilirubin Total 1.1 mg/dL (0.0-1.0); Blood Urea Nitrogen 12 mg/dL (9-16); Calcium 8.2 mg/dL (8.4-10.2); Carbon Dioxide 24 mmol/L (22-29); Chloride 106 mmol/L (96-108); Creatinine Clr Calc Pharmacy 104.5; Estimated Glomerular Filt Rate > 60; Glucose Random 105 mg/dL (60-115); Potassium 3.2 mmol/L (3.3-5.1); Sodium 138 mmol/L (135-145); Total Protein 6.8 g/dL (6.5-8.0)
[2023-05-03 14:32] LABS: Troponin-I High Sensitivity 3.2 ng/L (<3.5-35.0)
[2023-05-03 14:49] LABS: Lactate Dehydrogenase 296 U/L (118-273)
--- NOTE | 2023-05-03 14:49 | PHA.MEDREC ---
Pharmacy Consult ? Medication Reconciliation Pharmacy has completed the medication reconciliation. Patient said he's not on any medication right now
[2023-05-03] MEDS: 0.9 % Sodium Chloride 1,000 ML 250 ML IVCONT (14:53)
[2023-05-03] MEDS: Magnesium Sulfate/H2O 2 GM/50 ML PIGGYBACK IV (14:53)
[2023-05-03] MEDS: 0.9 % Sodium Chloride Flush 3 ML SYRINGE IVFLUSH ×2 (14:54→22:58)
[2023-05-03] MEDS: Doxycycline Hyclate 100 MG in 0.9 % Sodium Chloride 250 ML 166.67 MG IV (16:23)
--- NOTE | 2023-05-03 16:43 | P.CNID_ITS ---
History of Present Illness Data of Consult Service Date: 05/03/23 Requesting physician: Kiran Sr Primary Care Provider: Kareen Gibson MD HPI Reason for consult: fever of unknown origin He has fever to 102 with diarrhea over last three days. He harvested deer on 04/12. His is not ill. He has renal insufficiency. Review of Systems 2 Review of Systems: Yes all other systems are reviewed and are negative [facility] Past Medical History Medical History Chronic headaches Family History Family history: reviewed and not pertinent Social History Social History Alcohol intake: current Alcohol intake frequency: holidays/special occasions only Patient Tobacco Use Status: Never used Tobacco Smoked in Last 30 Days: No Use of substances other than those prescribed or required for medical reasons: No Advance Directives: No Advance Directives Information Provided: No Nutrition Risks: No Nutritional Risk Meds Allergies Allergy/AdvReac Type Severity Reaction Status Date / Time epoxy resin [EPOXY RESIN] Allergy Intermediate RASH Verified 05/03/23 07:40 Active Medications: Current Medications Acetaminophen (Acetaminophen Supp 650 Mg Supp.Rect) 650 mg MD Q6H PRN PRN Reason: Pain, Mild (Pain Scale 1-3) Doxycycline Hyclate 100 mg/ (Sodium Chloride) 250 mls @ 166.67 mls/hr IV Q12H [facility] Last Admin: 05/03/23 16:23 Dose: 166.67 mls/hr Sodium Chloride (Ns) 1,000 mls @ 250 mls/hr IVCONT .Q4H [facility] Stop: 05/03/23 18:14 Last Admin: 05/03/23 14:53 Dose: 250 mls/hr Ibuprofen (Ibuprofen 600 Mg Tablet) 600 mg PO Q6H PRN PRN Reason: Pain, Severe (Pain Scale 7-10) Melatonin (Melatonin 3 Mg Tablet) 6 mg PO BEDTIME PRN PRN Reason: Insomnia Ondansetron HCl (Ondansetron Hcl 4 Mg/2 Ml Vial) 4 mg IVPUSH Q8H PRN PRN Reason: Nausea and Vomiting Sodium Chloride (0.9 % Sodium Chloride Flush 3 Ml Syringe) 3 ml IVFLUSH QSHIFT [facility] Last Admin: 05/03/23 14:54 Dose: 3 ml Physical Exam 2 Vital Signs: Vital Signs: Last Vital Signs Temp 99.8 F 05/03/23 14:35 Pulse 99 05/03/23 13:29 Resp 18 05/03/23 12:00 BP 90/57 L 05/03/23 13:29 Pulse Ox 95 05/03/23 12:00 O2 Del Method Room Air 05/03/23 12:00 BMI result Body Mass Index 32.2 Const: General: cooperative HEENT: Head: Yes normal to inspection Face and sinus: Yes normal facial exam Mouth: Normal oral and palatal mucosa present Teeth and gingiva: d entition normal Eyes: General: appearance normal, both eyes and all related structures P upils: Equal, round and reactive pupils present Resp: Effort & Inspection: normal respiratory effort Cardio: Rate: regular rate Rhythm: regular rhythm GI: Palpation (GI): Soft to palpation and nontender : General: Yes no CVA tenderness Back/Spine/Pelvis: Back: no CVA tenderness Skin: General skin exam: no rashes or lesions noted Neuro: General: moves all extremities Cranial nerves: Yes Equal, round and reactive pupils present Extrem: General: Yes normal to inspection Psych: Appearance: grossly normal Results Labs 05/03/23 07:50 05/03/23 14:04 Labs: Short CBC 05/03/23 Range/Units 07:50 WBC 4.8 (4.8-10.8) X10*3/uL Hgb 15.3 (14.0-18.0) g/dl Hct 43.8 (42.0-52.0) % Plt Count 118 L D (160-400) X10*3/uL BMP 05/03/23 05/03/23 07:50 14:04 Sodium 135 138 Potassium 3.5 D 3.2 L Chloride 103 106 Carbon Dioxide 25 24 BUN 13 12 Creatinine 1.52 H 1.31 Calcium 9.0 8.2 L D Liver Function 05/03/23 05/03/23 Range/Units 07:50 14:04 Total Bilirubin 1.1 H 1.1 H (0.0-1.0) mg/dL AST 48 H 46 H (5-37) U/L ALT 64 H 56 H (0-40) U/L Alkaline Phosphatase 57 53 (39-117) U/L Albumin 3.9 3.5 (3.5-5.0) g/dL Urine 05/03/23 Range/Units 12:10 Urine Color Dark Yellow Urine Appearance Clear Urine pH 5.5 (5.0-9.0) Ur Specific [place] 1.025 (1.005-1.025) Urine Protein 30 (1+) H (Neg-Trace) mg/dL Urine Glucose (UA) Negative (Negative) mg/dL Assessment and Plan (1) Orthostasis: Status: Acute (2) Fever of unknown origin: Status: Acute This is tick borne or viral illness probably anaplasmosis or typhus. Plan Doxycycline for 10 days IV until GI tract improved. Await cultures and tick serologies.
--- NOTE | 2023-05-03 20:11 | MHC.EDTECH ---
This tech assumed care of patient at 1900, hourly rounds and belonging list completed and copy placed in chart.
--- NOTE | 2023-05-03 20:12 | MHC.EDTECH ---
Patient ambulated to bathroom with a steady gait.
--- NOTE | 2023-05-03 20:25 | PC.NURSE ---
called for report, nurse not ready at this time
[2023-05-03] MEDS: Ibuprofen 600 MG TABLET PO (21:46)
[2023-05-04] MEDS: Doxycycline Hyclate 100 MG in 0.9 % Sodium Chloride 250 ML 166.67 MG IV ×2 (03:15→13:38)
[2023-05-04 07:12] VITALS: BP 115/62; PULSE 69; RESP 16; TEMP 36.1; O2SAT 96
[2023-05-04] MEDS: 0.9 % Sodium Chloride Flush 3 ML SYRINGE IVFLUSH ×2 (07:49→20:09)
[2023-05-04 08:54] LABS: Lyme Abs Screen <0.90 index
--- NOTE | 2023-05-04 09:07 | MHC.CM.PN ---
PATIENT IN SHOWER DURING ASSESSMENT ATTEMPT. PER REVIEW OF CHART, HE IS INDEPENDENT WITH ADLS. NO DME OR VNA SERVICES HCP WILL BE ADDRESSED WHEN PATIENT IS ABLE TO PARTICIPATE IN ASSESSMENT PLAN IS FOR HOME NO SERVICES WHEN MEDICALLY CLEAR VERSUS IV ABX
[2023-05-04 10:33] LABS: Potassium 3.6 mmol/L (3.3-5.1)
[2023-05-04 13:27] LABS: Adenovirus PCR Not Detected (Not Detect.); Bordetella parapertussis PCR Not Detected (Not Detect.); Bordetella pertussis PCR Not Detected (Not Detect.); Chlamydia pneumoniae PCR Not Detected (Not Detect.); Coronavirus 229E PCR Not Detected (Not Detect.); Coronavirus HKU1 PCR Not Detected (Not Detect.); Coronavirus NL63 PCR Not Detected (Not Detect.); Coronavirus OC43 PCR Not Detected (Not Detect.); Human metapneumovirus PCR Not Detected (Not Detect.); Influenza A PCR Not Detected (Not Detect.); Influenza B PCR Not Detected (Not Detect.); Mycoplasma pneumoniae PCR Not Detected (Not Detect.); Parainfluenza 1 PCR Not Detected (Not Detect.); Parainfluenza 2 PCR Not Detected (Not Detect.); Parainfluenza 3 PCR Not Detected (Not Detect.); Parainfluenza 4 PCR Not Detected (Not Detect.); RSV PCR Not Detected (Not Detect.); Rhino/Enterovirus PCR Not Detected (Not Detect.)
--- NOTE | 2023-05-04 13:28 | MHC.CM.PN ---
PLAN IS TO AWAIT CX AND PLAN FROM THERE.
[2023-05-04 13:36] LABS: SARS-CoV-2 PCR Not Detected (Not Detect.)
[2023-05-04 15:46] VITALS: BP 135/63; PULSE 83; RESP 18; TEMP 38.6; O2SAT 95
[2023-05-04] MEDS: Acetaminophen 325 MG TABLET 650 MG PO (16:04)
--- NOTE | 2023-05-04 16:12 | P.CDIM_ITS ---
PROVIDER RESPONSE TEXT: To clarify, the appropriate diagnosis supported by the clinical indicators: Acute renal failure QUERY TEXT: PHYSICIAN'S DOCUMENTATION REQUEST Date of Query: 05/04/2023 10:30 AM EST Patient Name: Chuy Covarrubias Admit Date: 05/03/2023 Dear Jeremi Pack, A review of the medical record indicates additional documentation may be needed. Please review below and update the documentation accordingly. Clinical Indicators: ED: DAVID likely secondary to dehydration, IVF running H&P: DAVID is expected to resolve BUN 13 CR 1.52 GFR 52 ID notes on 05/03 - Acute renal insufficiency Clarity: Acute renal failure Acute renal insufficiency Other (explain) Clinically unable to determine (explain) Thank you, Opal Cerda, CCS, CDIS Use of terms such as suspected, likely, concern for, or probable (associated with a specific diagnosi s that is being evaluated, monitored, or treated as if it exists) are acceptable and can be coded in the inpatient se tting, when documented at the time of discharge. Please use your independent medical judgment in providing your response. THIS QUERY IS PART OF THE PERMANENT MEDICAL RECORD
--- NOTE | 2023-05-04 16:13 | HO.PM.IMPN ---
Subjective Subjective Date of Service: 05/04/23 Interval History: fevers (fuo) Review of Systems has some dry cough still intermittent fevers Denies any abdominal pain or ear pain or throat pain or any URI like symptoms. Physical Exam Vital Signs: Vital Signs: Last Vital Signs Temp 101.4 F H 05/04/23 15:46 Pulse 83 05/04/23 15:46 Resp 18 05/04/23 15:46 BP 135/63 05/04/23 15:46 Pulse Ox 95 05/04/23 15:46 O2 Del Method Room Air 05/04/23 15:46 BMI result Body Mass Index 32.2 Appearance: Alert.? Oriented X3.? cvs: rrr, [id number] , no murmur res: clear to auscultation ,no rhonchii or wheezing abd: no rebound or guarding ,nt, bs present. ext pulses present , no cyanosis. neuro: axo3 , nonfocal. Objective Data Active Medications Acetaminophen (Acetaminophen 325 Mg Tablet) 650 mg PO Q6H PRN PRN Reason: fever Last Admin: 05/04/23 16:04 Dose: 650 mg Documented By: ANGE Doxycycline Hyclate 100 mg/ (Sodium Chloride) 250 mls @ 166.67 mls/hr IV Q12H [facility] Last Infusion: 05/04/23 15:14 Dose: Infused Documented By: ANGE Ibuprofen (Ibuprofen 600 Mg Tablet) 600 mg PO Q6H PRN PRN Reason: Pain, Severe (Pain Scale 7-10) Last Admin: 05/03/23 21:46 Dose: 600 mg Documented By: KIRA Melatonin (Melatonin 3 Mg Tablet) 6 mg PO BEDTIME PRN PRN Reason: Insomnia Ondansetron HCl (Ondansetron Hcl 4 Mg/2 Ml Vial) 4 mg IVPUSH Q8H PRN PRN Reason: Nausea and Vomiting Sodium Chloride (0.9 % Sodium Chloride Flush 3 Ml Syringe) 3 ml IVFLUSH QSHIFT [facility] Last Admin: 05/04/23 15:24 Dose: Not Given Documented By: ANGE Non-Admin Reason: IV Running Labs 05/03/23 07:50 05/04/23 10:09 Labs: Laboratory Results - last 24 hr 05/03/23 05/04/23 11:52 11:57 Respiratory Panel [facility] See Note Adenovirus (Rapid PCR) Not Detected B.pert (TEM-PCR) Not Detected B.parapertussis DNA PCR Not Detected Lyme Screen IgG & IgM <0.90 Lyme Progressive Test TNP C. pneumoniae DNA (PCR) Not Detected Coronavirus OC43 (PCR) Not Detected Coronavirus HKU1 (PCR) Not Detected Coronavirus 229E (PCR) Not Detected Coronavirus NL63 (PCR) Not Detected Human Metapneumovir PCR Not Detected Influenza A (RT-PCR) Not Detected Influenza B (RT-PCR) Not Detected M. pneumoniae (PCR) Not Detected Parainfluenza 1 (PCR) Not Detected Parainfluenza 2 (PCR) Not Detected Parainfluenza 3 (PCR) Not Detected Parainfluenza 4 (PCR) Not Detected RSV (PCR) Not Detected Entero/Rhino (PCR) Not Detected SARS-CoV-2 RNA (RT-PCR) Not Detected Assessment and Plan (1) Fever of unknown origin: Status: Acute (2) Hepatic steatosis: Status: Acute (3) Splenomegaly: Status: Acute (4) Hypokalemia: Status: Acute (5) Hypomagnesemia: Status: Acute Plan 37 year old male with Fever, chills, Slenomegally and hepatic steatosis on CT.. DDx: Tick borne illness, Viral ilness, doubt lymphoma given no lymphadenopathy Fuo: unclear etiology CRP elevated, ESR normal Workup abdominal CT-shows hepato splenomegaly. Respiratory panel viral-negative, UA seems fine. Blood culture pending Tick borne disease panel pending seen by ID - follow-up blood culture,Empric Doxycyline, ID consult. Follow LFTs,Tylenol or NSAID for fever. DAVID: Likely secondary to dehydration Seems to be improving with hydration. Hypomagnesemia: Borderline low, Given IV mag for hypomagnesemia yesterday. Added p.o. magnesium. Hypokalemia: Repleted and resolved. Ongoing inpatient need: Patient has FUo-still having fever, on IV antibiotics, blood cultures pending as well as serology call workup, also need hydration for DAVID. And close electrolyte monitoring and possible replacement if still low. Quality Stroke Does the patient have a stroke diagnosis?: No VTE Prior VTE?: No VTE Risk Level:: Medical - low VTE Device Contraindication: Treatment Not Indicated VTE Drug Contraindication: N/A - Med Ordered
[2023-05-04] MEDS: Magnesium Oxide 400 MG TABLET 800 MG PO (16:33)
[2023-05-04 17:40] VITALS: TEMP 36.5
[2023-05-04 23:14] LABS: A. Phagocytphilium DNA,RT-PCR DETECTED (NOT DETECTED); Babesia Microti DNA, RT-PCR NOT DETECTED (NOT DETECTED); Borrelia Miyamotoi,DNA RT-PCR NOT DETECTED (NOT DETECTED); E.Chaffeensis DNA RT-PCR NOT DETECTED (NOT DETECTED); Lyme(Borrelia ssp)DNA RT-PCR NOT DETECTED (NOT DETECTED)
[2023-05-04 23:49] VITALS: BP 120/67; PULSE 71; RESP 18; TEMP 36.3; O2SAT 96
[2023-05-05] MEDS: Doxycycline Hyclate 100 MG in 0.9 % Sodium Chloride 250 ML 166.67 MG IV (02:11)
[2023-05-05 07:41] VITALS: BP 118/69; PULSE 80; RESP 16; TEMP 36.9; O2SAT 93
[2023-05-05] MEDS: 0.9 % Sodium Chloride Flush 3 ML SYRINGE IVFLUSH (07:43)
[2023-05-05] MEDS: Magnesium Oxide 400 MG TABLET 800 MG PO (07:43)
--- NOTE | 2023-05-05 11:05 | MHC.CM.PN ---
order for home, self-care. CM acknowledge.
[2023-05-05 11:16] LABS: Magnesium 1.8 mg/dL (1.6-2.6)
--- NOTE | 2023-05-05 12:55 | P.DS_ITS ---
DS: Providers Provider Date of Service: 05/05/23 Date of admission: 05/03/23 14:34 Date of discharge: 05/05/23 Primary care physician: Kareen Gibson MD Consults: 05/03/23 14:06 Consult to Infectious Diseases Stat [place]ing [place] [facility] [place] Reason for consultation: FUO Has provider been notified: Yes Attending physician on discharge: Jeremi Pack Discharging clinician: Jeremi Pack DS: Diagnosis Discharge Diagnosis (1) Fever of unknown origin: Status: Acute (2) Hepatic steatosis: Status: Acute (3) Splenomegaly: Status: Acute (4) Hypokalemia: Status: Acute (5) Hypomagnesemia: Status: Acute DS: Summary Hospital Course Hospital Course: 37 year old male with history of gerd here with fever chills. He reports having been having fever of up 104 for the last 3 days, associated with profuse sweating. His apetite has been rather poor, generalized malaise and feeling dizzy at time. He was healthy prior to this. 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 ED work up: normal blood count other than plat of 118, AST 48, ALT 67, normal bili. Mag 1.5 Has DAVID with Cr 1.5, monospot negative, Influenza and covid negative, Anaplasma screen is pending, CRP is 6.84. He has no rash. CT of the abdomen and pelvis show Hepatic steatosis. Hepatosplenomegaly. He has been treated with IV fluid , and Tylenol for fever. 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 follow up with hepatitis serology outpatient. Further workup outpatient. Seen by infectious disease: Recommended 10 days of p.o. doxycycline upon discharge. Hypomagnesemia and hypokalemia repleted and resolved. Monitor renal function and electrolytes outpatient. plan: 10 days of p.o. doxycycline 100 mg po bid upon discharge. moniter victorino outpatient Above management discussed with patient and his in detail length, Assessment plan coordination time spent 50 minute. Time Attestation Discharge coordination time: Greater than 30 minutes Quality: Safe Use of Opioids Does Pt have an Active Cancer Diagnosis on the Problem List?: No Quality: Stroke Does the patient have a stroke diagnosis?: No Physical Exam Vital Signs: Vital Signs: Last Vital Signs Temp 98.4 F 05/05/23 07:41 Pulse 80 05/05/23 07:41 Resp 16 05/05/23 07:41 BP 118/69 05/05/23 07:41 Pulse Ox 93 05/05/23 07:41 O2 Del Method Room Air 05/05/23 07:41 BMI result Body Mass Index 32.2 Appearance: Alert.? Oriented X3.? cvs: rrr, [id number] , no murmur res: clear to auscultation ,no rhonchii or wheezing abd: no rebound or guarding ,nt, bs present. ext pulses present , no cyanosis. neuro: axo3 , nonfocal. DS: Data Data Completed and Pending Labs on day of discharge: Laboratory Results - last 24 hr 05/03/23 05/04/23 05/05/23 10:16 11:57 10:45 Magnesium 1.8 Respiratory Panel [facility] See Note Adenovirus (Rapid PCR) Not Detected A.phagocytophil DNA PCR DETECTED A Babesia microti DNA PCR NOT DETECTED B.pert (TEM-PCR) Not Detected B.parapertussis DNA PCR Not Detected Borrelia sp DNA (PCR) NOT DETECTED Borrelia miyamotoi (PCR) NOT DETECTED C. pneumoniae DNA (PCR) Not Detected Coronavirus OC43 (PCR) Not Detected Coronavirus HKU1 (PCR) Not Detected Coronavirus 229E (PCR) Not Detected Coronavirus NL63 (PCR) Not Detected E.chaffeensis DNA (PCR) NOT DETECTED Human Metapneumovir PCR Not Detected Influenza A (RT-PCR) Not Detected Influenza B (RT-PCR) Not Detected M. pneumoniae (PCR) Not Detected Parainfluenza 1 (PCR) Not Detected Parainfluenza 2 (PCR) Not Detected Parainfluenza 3 (PCR) Not Detected Parainfluenza 4 (PCR) Not Detected RSV (PCR) Not Detected Entero/Rhino (PCR) Not Detected SARS-CoV-2 RNA (RT-PCR) Not Detected Tick-borne Disease PCR SEE NOTE Preliminary micro results at discharge 05/03/23 15:22 Blood Culture - Preliminary Blood - Venous No growth after 24 hours. 05/03/23 15:22 Blood Culture - Preliminary Blood - Venous No growth after 24 hours. Imaging Chest x-ray: Radiologist's impression: ITS Impressions Abdomen/Pelvis CT 05/03/23 08:55 IMPRESSION: Hepatic steatosis. Hepatosplenomegaly. Chest X-Ray 05/04/23 17:05 IMPRESSION: Upper normal-size cardiac silhouette. No evidence of pneumonia. Discharge Plan Discharge Anticipated Discharge Date/Time: 05/05/23 10:39 Patient Disposition: Home, Self-Care Discharge Diagnosis: anaplasmosis [place] [facility] [place] Group] Kareen Gibson MD [Primary Care Provider] - 1 Week Discharge Medications: New magnesium oxide 400 mg (241.3 mg magnesium) Tablet 800 mg PO DAILY Qty: 5 0RF doxycycline hyclate 100 mg capsule 100 mg PO BID Qty: 20 0RF Discharge Orders: Discharge Order (Routine); Ordered 05/05/23 Ordered By: Jeremi Pack Diet: Advance to usual diet Activity on Discharge: As tolerated Stand Alone Forms: Patient Portal Discharge page Other Ambulatory Orders: Basic Metabolic Panel (Routine) Timeframe: 1 Week Facility: [facility] - Location: Laboratory Ordered By: Jeremi Pack Liver Panel (Routine) Timeframe: 1 Week Facility: [facility] - Location: Laboratory Ordered By: Jeremi Pack Magnesium (Routine) Timeframe: 1 Week Facility: [facility] - Location: Laboratory Ordered By: Jeremi Pack Activity Restrictions/Additional Instructions: Your labs today showed dehydration. You were given 2 L of fluid in the ED. Your liver enzymes are elevated and CT shows a large, fatty liver. You need to follow up with a GI doctor for this. A referral has been provided to you. Call them to make an appointment. They will not call you. Your CT also showed an enlarged spleen. This is likely secondary to viral infection. Please avoid any contact sports as any trauma to your abdomen may cause your spleen to burst. Your CT also showed small kidney stones within your kidneys and bladder. Your symptoms are most consistent with a viral stomach bug, also known as gastroenteritis.? The treatment for this is supportive care. Symptoms usually resolve on their own in 48-72 hours.? The recommendation is rest and lots of oral hydration.? Stick to a bland diet like soup and toast while you are not feeling well.? You can also try over the counter Pepto Bismol or Imodium as needed for upset stomach and diarrhea.? Follow up with your primary care provider as needed. If you develop new or worsening symptoms call 911 or come back to the ER for further evaluation. Care Plan Goals: Patient was admitted to the hospital because generalized weak and dizzy: Further workup revealed elevated LFTs, hepatis steatosis and splenomegaly(on CT abdomen)- patient was started on IV doxycycline, blood cultures sent, tick-borne serology also send: Subsequently patient's fever seems to be improved, patient feeling more better, no dizziness, tolerating diet. LFTs also improving, need to monitor outpatient, also hepatitis screening for hepatitis A,B,C sent even though suspicion is low. follow up with hepatitis serology outpatient. Further workup outpatient. Seen by infectious disease: Recommended 10 days of p.o. doxycycline upon discharge. Hypomagnesemia and hypokalemia repleted and resolved. Monitor renal function and electrolytes outpatient. Health Concerns: As above. Plan of Treatment: As above. Assessment: As above. Patient Instructions: Viral Syndrome (ED)
[2023-05-06 08:57] LABS: HBS Num1 322.67 mIU/mL (0-7.99); HBc Num1 0.07 S/CO (0.00-0.79); HBsAGNum1 0.38 S/CO (0.00-0.99); Hepatitis A Antibody IgM 0.15 Index (0-0.79); Hepatitis B Core Antibody Nonreactive (Nonreactive); Hepatitis B Surface Antigen Negative (Negative); ~HepC Num1 0.08 S/CO (0.00-0.79); ~Hepatitis A Antibody IgM Nonreactive (Nonreactive); ~Hepatitis B Surface Antibody REACTIVE (Nonreactive); ~Hepatitis C Antibody Nonreactive (Nonreactive)
== END 2023-05-05 14:01 | disposition home or self-care (01) | DRG 868 ==
LOC: HO.ED 10:53 → HO.EDOVER 14:35 → HO.S3 19:38
PROVIDERS: Physician Assistant Medical; Admitting Provider Internal Medicine; Emergency Provider Emergency Medicine; PCP Family Medicine; Visit Provider Internal Medicine
DX: A79.82 Anaplasmosis [A. phagocytophilum] (principal); N17.9 Acute kidney failure, unspecified; I95.1 Orthostatic hypotension; E86.0 Dehydration; K76.0 Fatty (change of) liver, not elsewhere classified; R16.2 Hepatomegaly with splenomegaly, not elsewhere classified; E83.42 Hypomagnesemia; E87.6 Hypokalemia; Z20.822 Contact with and (suspected) exposure to COVID-19
CPT/HCPCS: 36415; 71045; 74176; 80053; 81001; 83615; 83690; 83735; 84132; 84484; 85025; 85652; 86140; 86308; 86617; 86618; 86704; 86706; 86709; 86803; 87040; 87340; 87468; 87469; 87478; 87484; 87502; 87633; 87635; 87798; 93005; 99285; J3475

== ENCOUNTER → 2023-05-03 14:34 | Outpatient (BNV) | payer SELFPAY | PROVIDERS: Admitting Provider Internal Medicine; Emergency Provider Emergency Medicine; PCP Family Medicine; Visit Provider Internal Medicine | DX: R50.9 Fever, unspecified (principal); K76.0 Fatty (change of) liver, not elsewhere classified; R16.1 Splenomegaly, not elsewhere classified; E83.42 Hypomagnesemia; R74.8 Abnormal levels of other serum enzymes | CPT/HCPCS: 99223; 99232; 99239 ==

== ENCOUNTER → 2023-05-03 14:34 | Outpatient (BNV) | payer SELFPAY | PROVIDERS: Admitting Provider Internal Medicine; Emergency Provider Emergency Medicine; PCP Family Medicine; Visit Provider Internal Medicine | DX: I95.1 Orthostatic hypotension (principal); R50.9 Fever, unspecified | CPT/HCPCS: 99222 ==

== ENCOUNTER → 2023-06-09 09:50 | Outpatient (BNVA) | payer SELFPAY | PROVIDERS: PCP Family Medicine | DX: Z02.1 Encounter for pre-employment examination (principal) ==